=== PATIENT | female | born 1995 | race Caucasian/White ===

== ENCOUNTER 2018-06-30 21:37 | Emergency (ER) | payer SELFPAY ==
[~2018-06-30] VITALS: Ht 157.5 cm; Wt 56.2 kg
[2018-06-30 21:39] VITALS: Ht 157.5 cm; Wt 56.2 kg
[2018-06-30] MEDS ORDERED: FAMOTIDINE 20 MG TAB PO STA (22:06)
[2018-06-30] MEDS ORDERED: LIDOCAINE/MYLANTA 40 ML BTL PO STA (22:06)
[2018-06-30] MEDS ORDERED: METOCLOPRAMIDE 10 MG TAB PO ONE (22:30)
--- NOTE | 2018-06-30 22:35 | ERD ---
ER Documentation Chief Complaint Chief Complaint ABD PAIN WITH N/V/D X3DAYS HPI 22-year-old female presenting with epigastric pain that has been constant for the past 3 days, intermittently worse. Worse with eating. Associated nausea but no vomiting. She occasionally does have loose stools but no blood in the st ool or melena. No fevers or chills. The pain in the epigastrium is burning, aching, sometimes radiating bilaterally in the upper quadrants. No associated chest pain. Pain is not radiating to the back. Currently her pain is a 6 out of 10. She does have associated acid reflux and belching as well. She did recently eat spicy food and her symptoms started after that. ROS All systems reviewed and are negative except as per history of present illness. Medications Home Meds Active Scripts Famotidine* (Pepcid*) 20 Mg Tablet, 20 MG PO BID for 14 Days, TAB Prov:YOSI MORENO MD 06/30/18 Allergies Allergies: Coded Allergies: No Known Allergy (Unverified , 06/30/18) PMhx/Soc Medical and Surgical Hx: pt denies Surgical Hx History of Surgery: No Anesthesia Reaction: No Hx Neurological Disorder: No Hx Respiratory Disorders: No Hx Cardiac Disorders: No Hx Psychiatric Problems: No Hx Miscellaneous Medical Probl: No Hx Alcohol Use: No Hx Substance Use: No Hx Tobacco Use: Yes Smoking Status: Current every day smoker FmHx Family History: No diabetes Physical Exam Vitals Vital Signs Date Temp Pulse Resp B/P (MAP) Pulse Ox O2 O2 Flow FiO2 Time Delivery Rate 06/30/18 98.6 79 19 133/81 99 Room Air 23:27 (98) 06/30/18 98.6 79 19 131/76 99 21:39 (94) Physical Exam Const: No acute distress Head: Atraumatic Eyes: Normal Conjunctiva ENT: Normal External Ears, Nose and Mouth. Neck: Full range of motion. No meningismus. Resp: Clear to auscultation bilaterally Cardio: Regular rate and rhythm, no murmurs Abd: Soft, non tender, non distended. No masses. Negative Yepez sign. No McBurney's point tenderness. Normal bowel sounds Skin: No petechiae or rashes Back: No midline or flank tenderness Ext: No cyanosis, or edema Neur: Awake and alert Psych: Normal Mood and Affect Results 24 hrs Current Medications Medications Dose Sig/Marce Start Time Status Last (Trade) Ordered Route PRN Stop Time Admin Dose Reason Admin Famotidine 20 mg ONCE STAT 06/30/18 DC 06/30/18 (Pepcid) PO 22:06 06/30/18 22:26 22:08 40 ml ONCE STAT 06/30/18 DC 06/30/18 Miscellaneous PO 22:06 06/30/18 22:26 Medication 22:08 (Gi Cocktail (2)) 10 mg ONCE ONCE 06/30/18 DC 06/30/18 Metoclopramid PO 22:30 06/30/18 22:26 e HCl 22:31 (Reglan) Procedures/MDM Patient is presenting with epigastric pain with associated nausea and belching.. Doubt biliary colic, biliary obstruction, acute cholecystitis, pancreatitis, hepatitis, lower lobe pneumonia, gastritis, colitis, cardiac pathology, aortic dissection, ureterolithiasis, pyelonephritis. Labs or imaging were not indicated. I suspect patient is likely suffering from acid reflux and gastritis. She was treated with a GI cocktail, antiemetics, and Pepcid. She had some improvement of her symptoms upon reevaluation. Recommended trial of Pepcid outpatient. Return precautions discussed. Discussed foods to avoid. Patient feels comfortable with the discharge plan. Advised to return for any worsening symptoms. Departure Diagnosis: Primary Impression: Abdominal pain Abdominal location: epigastric Qualified Codes: R10.13 - Epigastric pain Condition: Stable EKYOSI MEAD MD Jun 30, 2018 22:35
[2018-06-30] MEDS ORDERED: FAMO-96 PO (23:11)
[2018-06-30 23:27] VITALS: BP 133/81; PULSE 79; RESP 19
== END 2018-06-30 23:29 | disposition home or self-care (01) ==
LOC: E/R 21:37
DX: R10.13 Epigastric pain (principal); F17.210 Nicotine dependence, cigarettes, uncomplicated
CPT/HCPCS: 99283